=== PATIENT | male | born 1985 | race Caucasian/White ===

== ENCOUNTER 2022-12-27 15:46 | Emergency (ER) | payer BC ==
[2022-12-27] MEDS ORDERED: Sodium Chloride 0.9% 10 ML Syringe FLUSH PRN (16:13)
[2022-12-27] MEDS ORDERED: Sodium Chloride 0.9% 2.5 ML Syringe FLUSH PRN (16:13)
[2022-12-27] MEDS ORDERED: Lactated Ringers 1,000 ML IV SCH (16:15)
[2022-12-27 16:54] LABS: CORONAVIRUS COVID-19 NAA POSITIVE (NEGATIVE); INFLUENZA A NAA NEGATIVE (NEGATIVE); INFLUENZA B NAA NEGATIVE (NEGATIVE)
[2022-12-27] MEDS ORDERED: Piperacillin/Tazobactam 3.375 GM in Sodium Chloride 0.9% 50 ML IV ONE (17:09)
[2022-12-27 17:31] LABS: POTASSIUM,K 3.7 mmol/L (3.5-5.1)
== END 2022-12-27 19:51 ==
LOC: MW.ED 15:46
DX: U07.1 COVID-19 (principal); K37 Unspecified appendicitis
CPT/HCPCS: 0240U; 36415; 80053; 81001; 85025; 87086; 96361; 96365; 99285; J2543; J3490; J7050; J7120; 99284